=== PATIENT | female | born 1985 | race Caucasian/White ===

== ENCOUNTER 2020-05-06 09:16 | Day surgery (SDC) | payer BC, MEDICAID ==
[2020-04-30 14:25] LABS: BASOPHILS # (AUTO) 0.1 X10'3 (0-0.2); BASOPHILS % (AUTO) 0.9 % (0-1); EOSINOPHILS # (AUTO) 0.1 X10'3 (0-0.9); EOSINOPHILS % (AUTO) 1.2 % (0-6); LYMPHOCYTES # (AUTO) 1.5 X10'3 (1.1-4.8); LYMPHOCYTES % (AUTO) 26.2 % (21-51); MEAN CORPUSCULAR HEMOGLOBIN 31.7 PG (27.0-31.0); MEAN CORPUSCULAR HGB CONC 33.9 g/dL (33.0-36.5); MEAN CORPUSCULAR VOLUME 93.5 FL (78-98); MONOCYTES # (AUTO) 0.6 X10'3 (0-0.9); MONOCYTES % (AUTO) 11.5 % (2-12); NEUTROPHILS # (AUTO) 3.4 X10'3 (1.8-7.7); NEUTROPHILS % (AUTO) 60.2 % (42-75); PRE OP HEMOGLOBIN 13.5 g/dL (12.0-16.0); PRE OP PLATELET COUNT 370 X10'3 (140-440); RED BLOOD COUNT 4.27 X10'6 (4.20-5.60); RED CELL DISTRIBUTION WIDTH 13.4 % (11.5-14.5)
[2020-04-30 14:40] LABS: ALBUMIN/GLOBULIN RATIO 1.1 (1.1-1.5); ALKALINE PHOSPHATASE 78 IU/L (46-116); BLOOD UREA NITROGEN 12 MG/DL (7-18); BUN/CREATININE RATIO 14.3 (6.6-38.0); CHLORIDE 105 MMOL/L (99-107); CREATININE 0.84 MG/DL (0.40-0.90); PRE OP ALT 28 U/L (30-65); PRE OP ANION GAP 13 (8-16); PRE OP AST 19 U/L (10-37); PRE OP BILIRUB, TOTAL 0.5 MG/DL (0.0-1.0); PRE OP GLUCOSE 109 MG/DL (70-104); PRE OP SODIUM 142 MMOL/L (135-145); TOTAL CARBON DIOXIDE 24.4 MMOL/L (24-32); TOTAL PROTEIN 7.7 G/DL (6.4-8.2); eGFR 76 ML/MIN
[2020-04-30 14:42] LABS: PRE OP POTASSIUM 3.2 MMOL/L (3.4-5.1)
[2020-04-30 14:54] LABS: HCG SERUM QL NEGATIVE
[2020-05-06] VITALS (10 sets, daily range): BP systolic 109–140; BP diastolic 74–86
[~2020-05-06] VITALS: Ht 162.6 cm; Wt 57.2 kg
[~2020-05-06 09:16] MED LIST: NO HOME MEDS; famotidine 20mg tablet PO ONE; ringers solution, lacted 1,000 ML IV SCH
[2020-05-06] MEDS ORDERED: ringers solution, lacted 1,000 ML IV SCH (10:39)
[2020-05-06] MEDS ORDERED: morphine 2 MG/ML inj. syringe IV PRN (10:40)
[2020-05-06] MEDS ORDERED: morphine 4 MG/ML inj SYRINge IV PRN (10:40)
[2020-05-06] MEDS ORDERED: ondansetron/PF 4mg/2ml inj IV PRN (10:40)
[2020-05-06] MEDS ORDERED: proCHLORperazine 10 MG/2 ml inj IV PRN (10:40)
[2020-05-06] MEDS ORDERED: meperidine/PF 25mg/ml syringe IV PRN ×2 (10:40)
[2020-05-06] MEDS ORDERED: ondansetron/PF 4mg/2ml inj ONE (12:31)
[2020-05-06] MEDS ORDERED: sevoflurane 250ml liquid IH ONE (12:31)
[2020-05-06] MEDS ORDERED: fentaNYL/PF 50MCG/1 ML 2ML syringe ONE (12:36)
[2020-05-06] MEDS ORDERED: propofol inj 20 ML IV ONE (12:37)
[2020-05-06] MEDS ORDERED: midazolam 2 mg/2 ml injection ONE (12:37)
[2020-05-06] MEDS ORDERED: rocuronium 10mg/ml inj IV ONE (12:37)
[2020-05-06] MEDS ORDERED: BUPIVAcaine/PF 2.5 mg/ml (0.25%) 30ml vial ONE (12:40)
[2020-05-06] MEDS ORDERED: dexamethasone sod phosphate 4mg/ml inj. ONE (12:48)
[2020-05-06] MEDS ORDERED: neostigmine methylsulfate 1 MG/ML 10ml vial ONE (13:21)
[2020-05-06] MEDS ORDERED: glycopyrrolate 0.2mg/ml inj ONE (13:23)
--- NOTE | 2020-05-06 13:36 | NUR ---
Received from OR via [facility], accompanied by Anesthesiologist DARWIN and report given by Anesthesiolgist. PATIENT WITH 22G PIV IN LEFT UE. PATIENT WITH 3 ABDOMINAL LAP SITES PRESENT THAT ARE ALL CDI AT THIS TIME. MEDICATED FOR PAIN UPON ARRIVAL. NAKUL PAD IN PLACE AND IS CDI. Addendum: 05/06/20 at 1357 by Farrukh Rosario RN, RN Amended: Links added.
[2020-05-06] MEDS ORDERED: oxyCODONE/APAP 5-325mg tablet PO ONE ×2 (13:40)
[2020-05-06] MEDS: meperidine/PF 25mg/ml syringe IV PRN ×2 (13:42→14:03)
[2020-05-06] MEDS ORDERED: oxyCODONE/APAP 5-325mg tablet PO PRN ×2 (13:45)
--- NOTE | 2020-05-06 15:06 | NUR ---
I HAVE REVIEWED D/C INSTRUCTIONS WITH PATIENT AND FAMILY AND THEY HAVE VERBALIZED UNDERSTANDING. PATIENT D/C HOME WITH ALL BELONGINGS AND FAMILY GAVE TRANSPORT HOME. VOIDED, AMBULATED, DRESSED SELF, VSS. DRESSINGS TO ABDOMEN ARE CDI. Addendum: 05/06/20 at 1523 by Farrukh Rosario RN, RN Amended: Links added.
== END 2020-05-06 15:06 | disposition home or self-care (01) ==
LOC: PAS 09:16
PROVIDERS: ATTEND Obstetrics & Gynecology
DX: Z30.2 Encounter for sterilization (principal); F41.9 Anxiety disorder, unspecified; Z98.890 Other specified postprocedural states; Z87.891 Personal history of nicotine dependence; Z79.899 Other long term (current) drug therapy; Z88.8 Allergy status to other drugs, medicaments and biological substances; Z11.59 Encounter for screening for other viral diseases
CPT/HCPCS: 36415; 58661; 80053; 82948; 84703; 85025; J1100; J2175; J2250; J2270; J2405; J2704; J2710; J3010; J3490; U0003; A4618; A6250; J7120

== ENCOUNTER 2024-05-31 18:08 | Emergency (ER) | payer OTHER ==
[~2024-05-31] VITALS: Ht 162.6 cm; Wt 56.3 kg
[~2024-05-31 18:08] MED LIST changes: -famotidine 20mg tablet PO ONE; -ringers solution, lacted 1,000 ML IV SCH
[2024-05-31 18:10] VITALS: BP 180/97; PULSE 129; RESP 16; TEMP 98; O2SAT 100
== END 2024-05-31 19:43 | disposition left against medical advice (07) ==
LOC: EEVIPCON 18:08 → ER 18:08
DX: R46.89 Other symptoms and signs involving appearance and behavior (principal); R19.7 Diarrhea, unspecified; Z88.6 Allergy status to analgesic agent
CPT/HCPCS: 99281